=== PATIENT | female | born 1990 | race Caucasian/White ===

== ENCOUNTER 2017-05-17 13:58 | Emergency (ER) | payer OTHER ==
--- NOTE | 2017-05-17 14:26 | ER Document Report ---
HPI - HPI Pain Level: 2 Notes: Patient is a 26-year-old female with no significant past medical history aside from recurrent UTI who presents to the ED complaining of urinary burning, urgency, frequency, voiding small amounts. Patient states that she does have right lower back soreness, but that has improved. Patient states that the pain never radiated. Patient states that she does have suprapubic pressure as well. Patient states that her symptoms mimic that of previous UTIs. She still able to eat and drink without any difficulties. She is otherwise having normal bowel movements. She denies any vaginal discharge/odor/bleeding. Patient denies any concern of STD or STI at this time. She denies any drug allergies. Denies any headache, fever, neck pain, URI, sore throat, chest pain, palpitations, syncope, cough, shortness of breath, wheeze, dyspnea, nausea/ vomiting/diarrhea, loss of control of bowel or bladder, numbness/tingling, saddle anesthesia, muscle paralysis/weakness, or rash. - ROS Systems Reviewed and Negative: Yes All other systems reviewed and negative Past Medical History - Social History Smoking Status: Never Smoker Family History: Reviewed & Not Pertinent Vertical Provider Document - CONSTITUTIONAL Agree With Documented VS: Yes Notes: PHYSICAL EXAMINATION: GENERAL: Well-appearing, well-nourished and in no acute distress. A&Ox4. No discomfort noted. LUNGS: Breath sounds clear to auscultation bilaterally and equal. No wheezes rales or rhonchi. HEART: Regular rate and rhythm without murmurs, rubs, gallops. ABDOMEN: Soft, nontender, nondistended abdomen. No guarding, no rebound. No masses appreciated. Normal bowel sounds present. No CVA tenderness bilaterally. Musculoskeletal: FROM to passive/active. Strength 5+/5. No focal deficits. Back: Non-tender to palp. FROM. Strength 5+/5. No step-offs or rash. Extremities: No cyanosis, clubbing, or edema b/l. Peripheral pulses 2+. Capillary refill less than 3 seconds. NEUROLOGICAL: Normal speech, normal gait. Normal sensory, motor exams PSYCH: Normal mood, normal affect. SKIN: Warm, Dry, normal turgor, no rashes or lesions noted. - INFECTION CONTROL TRAVEL OUTSIDE OF THE [place] IN LAST 30 DAYS: No - RESPIRATORY O2 Sat by Pulse Oximetry: 97 Course - Re-evaluation Re-evalutation: 05/17/17 15:35 Patient is an afebrile, well-hydrated, 26-year-old female who presents the ED with suspected UTI, results may be hindered by ascorbic acid that was noted in the urine. Because of her symptoms and history of UTI's with the ascorbic acid present, I will cover her while waiting for confirmation vs debunking by the . Vitals are stable. PE is otherwise unremarkable. See urinalysis. Urine culture pending. Urine hCG is negative. Patient is tolerating p.o. without any difficulties. No other labs or imaging warranted at this time based on H& P. Low suspicion/risk for urosepsis, acute appendicitis, bowel obstruction, acute cholecystitis, acute cholangitis, perforated diverticulitis, incarcerated hernia, pancreatitis, perforated ulcer, peritonitis, sepsis, pelvic inflammatory disease, ectopic , tubo-ovarian abscess, ovarian torsion, or other systemic emergent condition at this time. Patient is aware that her condition can change from initial presentation and she needs to monitor symptoms closely and seek medical attention if any acute changes. I will send her home with keflex to take as directed. Conservative measures otherwise for symptoms. Recheck with your PCM in 3-5 days. Consider consult with a Urology. Return to the ED with any worsening/concerning symptoms otherwise as reviewed in discharge. Patient is in agreement. - Vital Signs Vital signs: Temp Pulse Resp BP Pulse Ox 98.8 F 81 20 132/70 H 97 05/17/17 14:02 05/17/17 14:02 05/17/17 14:02 05/17/17 14:02 05/17/17 14:02 Discharge - Discharge Clinical Impression: Dysuria Condition: Stable Disposition: HOME, SELF-CARE Instructions: Urinary Tract Infection ([facility]) Additional Instructions: Push fluids (i.e. water, cranberry juice) Proper hygenic technique Keep the skin clean Tylenol/ibuprofen as needed May use over the counter AZO for burning with urination Take medications as directed F/u with your PCM in 3-5 days for a recheck Consider consult with a Urologist for ongoing/worsening symptoms. Return to the ED with any worsening symptoms and/or development of fever, headache, chest pain, palpitations, syncope, shortness of breath, trouble breathing, abdominal pain, n/v/d, blood in stool/urine, loss of control of bowel /bladder, urinary retention, or other worsening symptoms that are concerning to you. Prescriptions: Cephalexin Monohydrate [Keflex 500 mg Capsule] 500 mg PO BID #14 capsule Forms: Elevated Blood Pressure Referrals: [facility] [Provider Group] - Follow up as needed
[2017-05-17 15:18] LABS: APPEARANCE,URINE SLIGHTLY-CLOUDY; BILIRUBIN,URINE NEGATIVE (NEGATIVE); COLOR,URINE YELLOW; GLUCOSE, URINE NEGATIVE (NEGATIVE); KETONES,URINE NEGATIVE (NEGATIVE); LEUKOCYTE ESTERASE,URINE NEGATIVE (NEGATIVE); NITRITE,URINE NEGATIVE (NEGATIVE); PROTEIN,URINE NEGATIVE (NEGATIVE); URINE SPECIFIC GRAVITY 1.023
[2017-05-17 15:45] VITALS: BP 117/78
== END 2017-05-17 15:45 | disposition home or self-care (01) ==
LOC: ER 13:58
DX: R30.0 Dysuria (principal); R39.15 Urgency of urination; R35.0 Frequency of micturition; R33.9 Retention of urine, unspecified
CPT/HCPCS: 81001; 81025; 87086; 87088; 87186; 99283